=== PATIENT | male | born 1960 | race Caucasian/White ===

== ENCOUNTER 2020-04-10 08:52 | Day surgery (SDC) | payer BC ==
[2020-04-08 15:12] VITALS: BMI 25.7
[~2020-04-10 08:52] MED LIST: LACTATED RINGERS 1,000 ML IV SCH
[2020-04-10 09:20] VITALS: TEMP 97.8
[2020-04-10] MEDS ORDERED: LACTATED RINGERS 1,000 ML IV ONE (09:25)
[2020-04-10] MEDS ORDERED: PROPOFOL 10 MG/ML 20 ML VIAL IV ONE (10:14)
--- NOTE | 2020-04-10 10:34 | P.PCN ---
Date of Procedure: 04/10/20 Procedure(s) Performed: BRIEF HISTORY: Patient is a 59-year-old pleasant male scheduled for an elective colonoscopy as a part of screening for colon cancer PROCEDURE PERFORMED: Colonoscopy. PREOPERATIVE DIAGNOSIS: Screening for colon cancer. IV sedation per Anesthesia. PROCEDURE: After informed consent was obtained, the patient, was brought into the endoscopy unit. IV sedation was administered by Anesthesia under continuous monitoring. Digital rectal examination was normal. Initially the Olympus CF-160 flexible video colonoscope was then inserted in the rectum, gradually advanced into the cecum without any difficulty. Careful examination was performed as the scope was gradually being withdrawn. Ileocecal valve and the appendiceal orifice were visualized and appeared normal. Prep was excellent. Mucosa of the cecum, ascending colon, transverse colon, descending colon, sigmoid colon, and rectum appeared normal. Retroflexion was performed in the rectum and no lesions were seen. The patient tolerated the procedure well. IMPRESSION: Normal-appearing colon from rectum to cecum with no evidence of colorectal neoplasia. RECOMMENDATIONS: Findings of this examination were discussed with the patient is well as his family. He was advised to have a repeat screening colonoscopy in 10 years.
[2020-04-10 10:55] VITALS: BP 101/61; PULSE 56; RESP 16
== END 2020-04-10 11:27 | disposition home or self-care (01) ==
LOC: ORWHC2ENDO 08:52
PROVIDERS: ATTEND Internal Medicine Gastroenterology
DX: Z12.11 Encounter for screening for malignant neoplasm of colon (principal)
CPT/HCPCS: J2704; G0121; 45378

== ENCOUNTER → 2022-03-06 | Outpatient (CLI) | payer BC ==
--- NOTE | 2022-03-07 03:01 | MR ---
EXAMINATION TYPE: MR shoulder RT wo con DATE OF EXAM: 03/06/2022 COMPARISON: None HISTORY: R shoulder pain Multiplanar multiecho imaging of the right shoulder without contrast. There is some fluid around the biceps tendon. The subscapularis tendon is intact. The glenoid angely a ppear intact. Biceps tendon is intact. There are small areas of increased signal in the inferior aspect of the supraspinatus tendon consiste nt with some tendinitis and partial tear. No retraction. The AC joint is intact. No subacromial impin gement. The infraspinatus tendon is intact. There is a small shoulder joint effusion. IMPRESSION: Small intrasubstance tears of the supraspinatus tendon. No full-thickness tear. No retraction. Small shoulder joint effusion consistent with minimal synovitis. No fracture seen.
== END | disposition home or self-care (01) ==
LOC: RADMRIMAIN 11:05
PROVIDERS: ATTEND Orthopaedic Surgery
DX: M75.111 Incomplete rotator cuff tear or rupture of right shoulder, not specified as traumatic (principal)